=== PATIENT | male | born 1960 | race Caucasian/White ===

== ENCOUNTER 2018-06-08 08:12 | Day surgery (SDC) | payer BC ==
[2018-06-08] VITALS (8 sets, daily range): BP systolic 124–142; BP diastolic 73–83
[~2018-06-08] VITALS: Ht 175.3 cm; Wt 79.4 kg
[2018-06-08] MEDS ORDERED: LIPITOR20 MG ORAL (08:46)
[2018-06-08] MEDS ORDERED: BUPROPION XL300 MG ORAL (08:46)
[2018-06-08] MEDS ORDERED: LOSARTAN POTAS100 MG ORAL (08:46)
[2018-06-08] MEDS ORDERED: GENVOYA TABLET1 EACH PO (08:46)
--- NOTE | 2018-06-08 08:59 | Pre-Procedure Note/Attestation ---
Pre-Procedure Note/Attestation Complete Prior to Procedure Procedure Narrative: excision of upper trunk / neck mass Indications for Procedure Pre-Operative Diagnosis: upper trunk / neck mass Attestation I attest that I discussed the nature of the procedure; its benefits; risks and complications; and alternatives (and the risks and benefits of such alternatives ), prior to the procedure, with the patient (or the patient's legal patient account representative). I attest that, if there was a reasonable possibility of needing a blood transfusion, the patient (or the patient's legal patient account representative) was given the [facility] standardized written summary, pursuant to the [place] Blood Safety Act ([place] Health and Safety Code # 1645, as amended). I attest that I re-evaluated the patient just prior to the surgery and that there has been no change in the patient's H&P, except as documented below: Holden Lindquist Jun 08, 2018 08:59
[2018-06-08] MEDS ORDERED: ceFAZolin sod 2 GM in NS 110 ML IVPB SCH (09:15)
[2018-06-08] MEDS ORDERED: Lidocaine 1% 10mg/ml/EPI 0.01mg/ml 50ml INJ ONE (09:44)
[2018-06-08] MEDS ORDERED: LR 1000ml ONE (10:30)
[2018-06-08] MEDS ORDERED: NS Irrig 1000ml ONE (10:30)
[2018-06-08] MEDS ORDERED: Sterile Water Irrig 1000ml IRRIG ONE (10:30)
[2018-06-08] MEDS ORDERED: Midazolam 2mg/2ml Inj ONE (10:33)
[2018-06-08] MEDS ORDERED: fentaNYL 100 mcg/2 mL IV ONE (10:35)
[2018-06-08] MEDS ORDERED: LR 1000ml 1,000 ML IVLG SCH (11:03)
--- NOTE | 2018-06-08 11:10 | Anethesia Preoperative Eval ---
Anesthesia Pre-op PMH/ROS General Date of Evaluation: Jun 08, 2018 Time of Evaluation: 10:32 Anesthesiologist: Alfred ASA Score: ASA 3 Mallampati Score Class I : Soft palate, uvula, fauces, pillars visible Class II: Soft palate, uvula, fauces visible Class III: Soft palate, base of uvula visible Class IV: Only hard plate visible Mallampati Classification: Class II Surgeon: Ameena Diagnosis: Lipoma posterior neck Surgical Procedure: Excision of lipoma Family History: no anesthesia problems Allergies: Coded Allergies: No Known Allergies (Unverified , 06/08/18) Medications: see eMAR Patient NPO?: Yes NPO Date: Jun 07, 2018 NPO Time: 21:00 Past Medical History Cardiovascular: Reports: HTN; Denies: CAD, PA, valve dz, arrhythmia, other Pulmonary: Denies: asthma, COPD, [id number], other Gastrointestinal/Genitourinary: Denies: GERD, CRI, ESRD, other Neurologic/Psychiatric: Denies: dementia, CVA, depression/anxiety, TIA, other Endocrine: Denies: DM, hypothyroidism, steroids, other HEENT: Denies: cataract (L), cataract (R), glaucoma, [place] (L), [place] (R), other Hematology/Immune: Denies: anemia, DVT, bleeding disorder, other Musculoskeletal/Integumentary: Denies: OA, RA, DJD, DDD, edema, other PMH Narrative: HTN, HIV Anesthesia Pre-op Phys. Exam Physician Exam Last Vital Signs Date Time Temp Pulse Resp B/P (MAP) Pulse Ox O2 Delivery O2 Flow Rate FiO2 06/08/18 08:54 97.7 59 20 129/77 99 Room Air 97.7 Constitutional: NAD Neurologic: CN 2-12 intact Cardiovascular: RRR, no M/R/G Respiratory: CTA Gastrointestinal: S/NT/ND Airway Exam Mallampati Score: Class II MO: full ROM: full Teeth: intact Anesthesia Pre-op A/P Labs WNL Risk Assessment & Plan Assessment: HTN, HIV Plan: MAC Status Change Before Surgery: No Pre-Antibiotics Drug: Ancef Given Within 1 Hr of Incision: Yes Time Given: 10:45 Joni Simon MD Jun 08, 2018 11:10
[2018-06-08] MEDS ORDERED: Propofol 200mg/20ml IV ONE (11:11)
[2018-06-08] MEDS ORDERED: DiphenhydrAMINE 50mg/ml Inj IVP PRN (11:15)
[2018-06-08] MEDS ORDERED: Meperidine 50mg/ml Inj(FOR RIGORS ONLY) IVP PRN (11:15)
--- NOTE | 2018-06-08 11:16 | Immediate Post-Op Evaluation ---
Immediate Post-Op Evalulation Immediate Post-Op Evalulation Procedure: Excision of lipoma posterior neck Date of Evaluation: Jun 08, 2018 Time of Evaluation: 12:02 IV Fluids: 650 Blood Pressure Systolic: 134 Blood Pressure Diastolic: 68 Pulse Rate: 74 Respiratory Rate: 20 O2 Sat by Pulse Oximetry: 100 Temperature (Fahrenheit): 97.4 Pain Score (1-10): 0 Nausea: No Vomiting: No Complications No complication Patient Status: awake, patent, none Hydration Status: adequate Drug: Ancef Given Within 1 Hr of Incision: Yes Time Given: 10:45 Joni Simon MD Jun 08, 2018 11:16
--- NOTE | 2018-06-08 11:52 | Brief Operative Note ---
Immediate Post Operative Note Operative Note Pre-op Diagnosis: upper trunk / neck mass Procedure: excision of left upper trunk / neck mass subfascial with adjacent tissue transfer for complex closure Post-op Diagnosis: left upper trunk / neck lipoma Surgeon: amarilis Anesthesiologist: vahid Anesthesia: local, moderate sedation Specimen: yes Complications: none Condition: stable Fluids: see records Estimated Blood Loss: minimal Drains: none Implant(s) used?: No Holden Lindquist Jun 08, 2018 11:52
--- NOTE | 2018-06-08 11:54 | 48 Hour Post Anesthesia Eval ---
Post Anesthesia Evaluation Procedure: Excision of lipoma posterior neck Date of Evaluation: Jun 08, 2018 Time of Evaluation: 12:20 Blood Pressure Systolic: 130 0: 70 Pulse Rate: 66 Respiratory Rate: 18 O2 Sat by Pulse Oximetry: 100 Airway: patent Nausea: No Vomiting: No Pain Intensity: 0 Hydration Status: adequate Cardiopulmonary Status: Stable Mental Status/LOC: patient returned to baseline Follow-up Care/Observations: As per surgery Post-Anesthesia Complications: No anesthetic complication Follow-up care needed: N/A Joni Simon MD Jun 08, 2018 11:54
[2018-06-08] MEDS ORDERED: D5 1/2NS 1,000 ML IV SCH (12:00)
[2018-06-08] MEDS ORDERED: Tylenol #3 tab (300mg/30mg) ORAL PRN (12:00)
[2018-06-08] MEDS ORDERED: Norco 5mg/325mg tab ORAL PRN (12:00)
[2018-06-08] MEDS ORDERED: HYDROmorphone 1mg/ml Carpuject SUBQ PRN (12:00)
--- NOTE | 2018-06-09 00:45 | Operative Note - Dictated ---
DATE OF OPERATION: 06/08/2018 PREOPERATIVE DIAGNOSIS: Left upper trunk/neck mass. POSTOPERATIVE DIAGNOSIS: Left upper trunk/neck lipoma, large. OPERATION PERFORMED: Excision of left upper trunk/neck subfascial lipoma with adjacent tissue transfer for complex closure. ATTENDING SURGEON: Holden Lindquist M.D. MONOGRAM OPERATOR: None. ANESTHESIOLOGIST: Joni Simon M.D. ANESTHESIA: Moderate sedation with local anesthetic. SPECIMENS: Left upper trunk/neck lipoma. CONDITION: Stable. DRAINS: None. FLUIDS: Please see anesthesia records. ANTIBIOTICS: 2 g Ancef IV given 1 hour prior to cut time. ESTIMATED BLOOD LOSS: Minimal. IMPLANTS: None. INDICATIONS FOR PROCEDURE: This is a 57-year-old male who was prior seen in Dr. Lindquist's office for evaluation of a left posterior neck/upper trunk lipoma. He states that for many months he had some neck pain and there was this mobile mass that feels like its on the muscles, which is believed to be a lipoma, which has been present for approximately 5-10 years and after evaluation by his primary care physician, he was recommended for evaluation by surgeon for excision. In the office, the patient was noted to have a 10 cm x 15 cm lipoma in the cleft of his left upper trunk/lower neck. It was mobile and did seem to be attached to the muscle and after discussion of risks, benefits, alternatives, consent was obtained and surgery was scheduled for excision on 06/08/2018. Discussion was had with the patient about complex closure, seroma, infection, hematoma, reoperation, recurrence as well as other related morbidities. OPERATIVE NOTE: The patient was taken to the operating room and placed on the operating table in the prone position with all bony prominences well padded. Preoperative time-out was taken identifying the patient, procedure, operative site, and surgical staff. SCDs were placed. IV sedation was given during monitoring by anesthesiologist. The posterior neck and upper trunk were prepped and draped in standard surgical fashion. Local anesthetic was infiltrated in the proposed skin incision, which was marked out prior. A fresh #15 scalpel was used to make a transverse skin incision in the left upper trunk/lower posterior neck. Incision was carried down past the dermis to the subcutaneous tissue with electrocautery for hemostasis as necessary. The lipoma was palpated and identified. The lipoma was then circumferentially dissected out using electrocautery. At the base, lipoma was identified to be subfascial and small portion of intramuscular requiring excision and division at this point using a 3-0 Vicryl suture. Hemostasis was noted and achieved throughout the procedure with electrocautery. Once the lipoma was circumferentially dissected out, excised, and divided at its base underneath the fascia within the muscle ligating its feeding vessels. The lipoma was then sent to pathology for review. The lipoma was greater than 5 cm but less than 10 cm incised circumferentially. Following this, the remaining defect was irrigated and cleansed, and hemostasis was achieved with electrocautery. For the remainder of the closure, given the size of the defect and its location, an adjacent tissue transfer was required for a complex closure. Electrocautery was used to undermine the remaining subcutaneous tissue at the dermis and at the fascia with a relaxing skin incision in the fascia inferomedial. Once this was complete, this portion of tissue transfer was brought into the remaining defect of the old lipoma space and the adjacent fascia was reapproximated using 2-0 Vicryl sutures followed by reapproximation of subcutaneous tissue using 2-0 Vicryl sutures in 3 layers, followed by reapproximation of the dermis with 3-0 Vicryl suture and subcuticular running 4-0 Monocryl suture. The remaining skin incision was cleansed and benzoin and Steri-Strips were applied followed by dressings. The patient tolerated the procedure well and was taken to the postanesthetic care unit in stable condition and discharged home. No immediate postoperative complications noted. Holden Lindquist M.D. DR: Bhavana JOB#: [id number] CC: BUCK
== END 2018-06-08 13:25 | disposition home or self-care (01) ==
LOC: SUR 08:12
DX: D17.0 Benign lipomatous neoplasm of skin and subcutaneous tissue of head, face and neck (principal); I10 Essential (primary) hypertension; Z88.2 Allergy status to sulfonamides
CPT/HCPCS: 14301; 14302; 21554; J0690; J2250; J2704; J3010; 94003; 94150